=== PATIENT | female | born 1985 ===

== ENCOUNTER 2021-06-12 19:50 | Emergency (ER) | payer OTHER ==
[~2021-06-12] VITALS: Ht 167.6 cm; Wt 75.0 kg
[2021-06-12 20:43] LABS: COVID AG,FIA SOURCE NASOPHARYNGEAL
[2021-06-13 00:07] VITALS: BP 131/88
== END 2021-06-13 00:32 | disposition home or self-care (01) ==
LOC: EMS 20:01
DX: U07.1 COVID-19 (principal)
CPT/HCPCS: 99283